=== PATIENT | female | born 1945 | race American Indian/Alaskan Native ===

== ENCOUNTER 2017-03-03 10:41 | Outpatient (CLI) | payer OTHER, MEDICARE ==
--- NOTE | 2017-03-04 08:39 | Mammography Report ---
BILATERAL DIGITAL SCREENING MAMMOGRAM with CAD: 03/03/17 10:41:00 CLINICAL: Routine screening. COMPARISON:07/19/13 FINDINGS: The breasts are heterogeneously dense, which may obscure small masses. No mass, architectural distortion or suspicious calcifications. IMPRESSION: No mammographic evidence of malignancy. BI-RADS CATEGORY: 1 - - Negative RECOMMENDATION: Routine mammographic screening in one year. COMMENT: Patient follow-up letters are generated by our [employer] application.
== END 2017-03-03 10:42 | disposition home or self-care (01) ==
LOC: SPVWC 10:41
PROVIDERS: ATTEND Obstetrics & Gynecology
DX: Z12.31 Encounter for screening mammogram for malignant neoplasm of breast (principal)
CPT/HCPCS: 77067; G0202

== ENCOUNTER 2021-01-01 09:09 | Outpatient (CLI) | payer MEDICARE, OTHER ==
--- NOTE | 2021-01-01 10:27 | Mammography Report ---
DEXA BONE DENSITY SCAN INDICATION / CLINICAL INFORMATION: AGE RELATED OSTEOPOROSIS W/O CURRENT PATHOLOGICAL FRACTURE. 75 years Female COMPARISON: 09/19/2018 LUMBAR SPINE, L1-L4: - Bone mineral density (BMD) = 1.115 g/cm2. - T-score = -0.3 - Z-score = 2.3 Change (%) since most recent prior (if available): 2.3% decrease LEFT HIP, NECK : - Bone mineral density (BMD) = 0.739 g/cm2. - T-score = -1.5 - Z-score = 0.1 Change (%) since most recent prior (if available): 1.2% decrease IMPRESSION: 1. WHO Classification: Osteopenia. Fracture Risk: Increased. Note: 10-Year Fracture Risk (FRAX) not reported. This DEXA unit lacks FRAX functionality. BMD Reporting Guidelines (ISCD, 2015) BMD Reporting in Postmenopausal Women and in Men Age 50 and Older - T-scores are preferred. - The WHO densitometric classification is applicable. BMD Reporting in Females Prior to Menopause and in Males Younger Than Age 50 - Z-scores, not T-scores, are preferred. This is particularly important in children. - A Z-score of -2.0 or lower is defined as below the expected range for age, and a Z-score above -2.0 is within the expected range for age. - Osteoporosis cannot be diagnosed in men under age 50 on the basis of BMD alone. - The WHO diagnostic criteria may be applied to women in the menopausal transition. http://www.iscd.org/official-positions/5849-pduj-jhzchrur-positions-adult/ Signer Name: Matt Fried MD Signed: 01/01/2021 10:23 AM Workstation Name: [id number]
--- NOTE | 2021-01-01 11:04 | Mammography Report ---
DIGITAL SCREENING MAMMOGRAM WITH CAD, 01/01/2021 CLINICAL INFORMATION / INDICATION: Routine screening mammography. TECHNIQUE: Digital bilateral 2D mammography was obtained in the craniocaudal and mediolateral obliqu e projections. This examination was interpreted with the benefit of Computer-Aided Detection analysis . COMPARISON: 09/19/2018, 03/03/2017, 11/18/2014 FINDINGS: Breast Density: There are scattered areas of fibroglandular density. No dominant mass, suspicious calcifications, or architectural distortion in either breast. IMPRESSION: No mammographic evidence of malignancy. Follow up recommendation: Routine yearly BI-RADS Category 1: Negative. A "normal" or negative report should not discourage follow up or biopsy of a clinically significant f inding. A written summary of these findings will be mailed to the patient. The patient will be entered into a mammography reporting system which will generate a reminder letter for the patient's next appointmen t at the appropriate interval. The [employer] recommends yearly mammograms starting at age 40 and continuing as l perfecto as a woman is in good health. Breast MRI is recommended for women with an approximate 20-25% or greater lifetime risk of breast cancer, including women with a strong family history of breast or ova gautam cancer or who have been treated for Hodgkin's disease. Signer Name: Emily Krueger MD Signed: 01/01/2021 11:00 AM Workstation Name: [id number]
== END 2021-01-01 09:10 | disposition home or self-care (01) ==
LOC: SPVWC 09:09
PROVIDERS: ATTEND Family Medicine
DX: Z12.31 Encounter for screening mammogram for malignant neoplasm of breast (principal); M81.0 Age-related osteoporosis without current pathological fracture; M85.88 Other specified disorders of bone density and structure, other site
CPT/HCPCS: 77067; 77080